=== PATIENT | male | born 1970 | race Native Hawaiian/Other Pacific Islander ===

== ENCOUNTER 2017-03-15 13:50 | Emergency (ER) | payer OTHER, BC ==
[2017-03-15 13:54] VITALS: BMI 23.0
[2017-03-15 13:59] VITALS: TEMP 98
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
--- NOTE | 2017-03-15 15:46 | RAD ---
PROCEDURE: Left Knee Radiographs. HISTORY: Pain. COMPARISON: None. FINDINGS: BONES: Trace spurring medial tibial spine and medial femoral condyle towards intercondylar fossa possible tiny 1 to 2 mm subchondral cyst medial femoral condyle No fracture. JOINTS: Minimal osteoarthritis. JOINT EFFUSION: None. OTHER FINDINGS: None. IMPRESSION: Minimal early osteoarthrosis.
[2017-03-15 16:02] VITALS: BP 112/78; PULSE 84; RESP 17
[2017-03-15 20:39] VITALS: O2SAT 98
== END 2017-03-15 16:02 | disposition home or self-care (01) ==
LOC: C.ER 13:50
DX: S83.92XA Sprain of unspecified site of left knee, initial encounter (principal); S20.212A Contusion of left front wall of thorax, initial encounter; S50.02XA Contusion of left elbow, initial encounter; V09.3XXA Pedestrian injured in unspecified traffic accident, initial encounter; Y92.410 Unspecified street and highway as the place of occurrence of the external cause